=== PATIENT | male | born 1935 | race Caucasian/White ===

== ENCOUNTER → 2017-02-19 | Outpatient (CLI) | payer MEDICARE ==
[~2017-02-19] MED LIST: AMIT10TA6 PO; ASCO10007 PO; ASPI-1114 PO; ATOR10 PO; CARV3.12 PO; CITA10TA13 PO; CLOP75TA32 PO; ESOM40CA54 PO; FURO-152 PO; GABA-529 PO; HYDR-3420 PO; ISOS30TA6 PO; LISI2.5T2 PO; MIRA25TA PO; MULT-1258 PO; TAMS0.4C32 PO; TRAM50TA4 PO; UBID30CA11 PO
== END | disposition home or self-care (01) ==
LOC: RAH 08:40
PROVIDERS: ATTEND Otolaryngology Plastic Surgery within the Head & Neck
DX: K20.8 Other esophagitis (principal)
CPT/HCPCS: 74220

== ENCOUNTER → 2017-04-07 | Outpatient (CLI) | payer MEDICARE | END | disposition home or self-care (01) | LOC: RAH 10:11 | PROVIDERS: ATTEND Otolaryngology Plastic Surgery within the Head & Neck | DX: K21.9 Gastro-esophageal reflux disease without esophagitis (principal) | CPT/HCPCS: G8996; G8997; G8998; 74230; 92611 ==